=== PATIENT | female | born 1960 | race Caucasian/White ===

== ENCOUNTER 2016-09-09 08:28 | Emergency (ER) | payer BC ==
[2016-09-09 08:47] VITALS: BP 154/87
--- NOTE | 2016-09-09 09:01 | UC ---
Throat Pain/Nasal Elvin HPI - HPI Summary HPI Summary: 56 female presents with complaints of sinus pressure, nasal congestion, post nasal drip, headache, cough and chest congestion that began Saturday09/07/16. Patient states she has tried using the saline nasal spray and homeopathic remedies without relief. She states she thinks her sinus congestion has improved but now has moved into her chest. Admits to her cough being somewhat productive with yellow-mucus like sputum. She uses an inhaler when she runs and has been out of it. She admits to a fever on Saturday. Denies nausea, vomiting, diarrhea, sore throat and hemoptysis. Denies difficulty breathing, SOB and chest pain. Denies PMHx besides asthma. - History of Current Complaint Chief Complaint: UCGeneralIllness Stated Complaint: SINUS,COUGH Time Seen by Provider: 09/09/16 08:47 Hx Obtained From: Patient Hx Last Menstrual Period: 2009 - due to chemotherapy ?: No Onset/Duration: Sudden Onset Severity: Mild Cough: Productive Associated Signs & Symptoms: Positive: Sinus Discomfort, Nasal Discharge, Fever - Allergies/Home Medications Allergies/Adverse Reactions: Allergies Allergy/AdvReac Type Severity Reaction Status Date / Time No Known Allergies Allergy Verified 09/09/16 08:36 Home Medications: Home Medications Calcium 1,200 PO DAILY 09/09/16 [History] PMH/Surg Hx/FS Hx/Imm Hx Respiratory History Of: Reports: Asthma Cancer History Of: Reports: Breast Cancer - 2009 - Surgical History Surgical History: Yes Surgery Procedure, Year, and Place: TONSILECTOMY/LUMPECTOMY - Family History Known Family History: Positive: None - Social History Alcohol Use: Daily Alcohol Amount: wine daily Substance Use Type: None Smoking Status (MU): Former Smoker Type: Cigarettes Length of Time of Smoking/Using Tobacco: 20 years When Did the Patient Quit Smoking/Using Tobacco: 10 years ago - Immunization History Most Recent Influenza Vaccination: has not had Vaccination Up to Date: Yes Review of Systems Constitutional: Fever Skin: Negative Eyes: Negative ENT: Sore Throat, Ear Ache, Nasal Discharge Respiratory: Cough Cardiovascular: Negative Gastrointestinal: Negative Motor: Negative Neurovascular: Negative Musculoskeletal: Negative Neurological: Headache Psychological: Negative All Other Systems Reviewed And Are Negative: Yes Physical Exam Triage Information Reviewed: Yes Appearance: Well-Appearing, No Pain Distress, Well-Nourished Vital Signs: Initial Vital Signs Temp 99.7 F 09/09/16 08:40 Pulse 68 09/09/16 08:40 Resp 16 09/09/16 08:40 BP 154/87 09/09/16 08:40 Pulse Ox 100 09/09/16 08:40 Vital Signs Reviewed: Yes Eyes: Positive: Conjunctiva Clear ENT: Positive: Hearing grossly normal, Pharyngeal erythema - post nasal drip noted, Nasal congestion, Nasal drainage, TMs normal. Negative: Tonsillar swelling, Tonsillar exudate Dental: Positive: Percussion Tenderness @ - maxillary and frontal. Negative: Cervical Lymphadenopathy Neck: Positive: Supple, Nontender, No Lymphadenopathy Respiratory: Positive: Chest non-tender, Lungs clear, Normal breath sounds, No respiratory distress, No accessory muscle use Cardiovascular: Positive: RRR, No Murmur, Pulses Normal, Brisk Capillary Refill Abdominal Exam: Normal Musculoskeletal: Positive: Strength Intact, ROM Intact Neurological Exam: Normal Neurological: Positive: Alert Psychological Exam: Normal Skin Exam: Normal Throat Pain/Nasal Course/Dx - Course Course Of Treatment: continue flonase/saline and take z-pack. fluids. refilled inhaler because she stated she was out. - Differential Dx/Diagnosis Differential Diagnosis/HQI/PQRI: Influenza, Otitis Media, Pharyngitis, Sinusitis , Tonsillitis, URI Provider Diagnoses: sinusitis, URI Discharge - Discharge Plan Condition: Stable Disposition: HOME Prescriptions: Albuterol HFA INHALER* [Ventolin HFA Inhaler*] 1 - 2 puff INH Q4H PRN #1 mdi PRN Reason: Wheezing Azithromycin TAB* [Zithromax TAB (Z-DARRICK) 250 mg #6 tabs] 2 tab PO .TODAY, THEN 1 DAILY #1 darrick Patient Education Materials: Sinusitis (ED), Upper Respiratory Infection (ED) Referrals: Joyce Lacy MD [Medical Doctor] - Additional Instructions: Take prescribed antibiotic until entire dose is finished. Recommend taking with food to avoid upset stomach, and taking probiotic pills in between doses to replenish normal beatriz. Use flonase twice daily as needed for nasal congestion. Also recommend continued use of yuli pot's or saline nasal spray. Drink plenty of fluids and wash hands frequently. Humidified air or hot showers may help relieve you symptoms. You may continue use of Dayquil Ibuprofen/Aleve as needed. If symptoms do not improve or worsen please seek medical attention.
== END 2016-09-09 09:09 | disposition home or self-care (01) ==
LOC: UCCORT 08:28
DX: J32.9 Chronic sinusitis, unspecified (principal); J06.9 Acute upper respiratory infection, unspecified; J45.909 Unspecified asthma, uncomplicated; Z85.3 Personal history of malignant neoplasm of breast; Z87.891 Personal history of nicotine dependence
CPT/HCPCS: 99212; G0463

== ENCOUNTER 2016-09-20 10:21 | Emergency (ER) | payer BC ==
[2016-09-20 12:32] VITALS: BP 181/81
--- NOTE | 2016-09-20 13:04 | RAD ---
HISTORY: Facial trauma COMPARISONS: None VIEWS: 3, Canela views of the face, bilateral coned down lateral views of the nasal bones FINDINGS: BONE DENSITY: Normal. BONES: There is a transverse nondisplaced fracture of the nasal bones bilaterally JOINTS: There is no arthropathy. ALIGNMENT: There is no dislocation. SOFT TISSUES: Unremarkable. OTHER FINDINGS: None. IMPRESSION: TRANSVERSE FRACTURE OF THE NASAL BONES BILATERALLY
--- NOTE | 2016-09-20 13:50 | UC ---
Epistaxis Nasal HPI - HPI Summary HPI Summary: AT 9AM HORSE NODDED DOWNWARD AND HIT PATIENTS NOSE. FELT CRUNCH AND NOSE BLED. NO LOC. NO NECK PAIN. NO FACIAL TENDERNESS. SWELLING AND DEFORITY IN NOSE. HISTORY OF NASAL FRACTURE AT AGE 6Y/O. - History of Current Complaint Chief Complaint: UCUpperExtremity Stated Complaint: FACIAL NOSE INJURY WC Time Seen by Provider: 09/20/16 12:17 Hx Obtained From: Patient Hx Last Menstrual Period: 2009 - due to chemotherapy Onset/Duration: Sudden Onset, Lasting Hours, Still Present Timing: Hours Severity Initially: Moderate Severity Currently: Mild Aggravating Factor(s): Nasal Trauma Associated Signs And Symptoms: Positive: Negative - Allergies/Home Medications Allergies/Adverse Reactions: Allergies Allergy/AdvReac Type Severity Reaction Status Date / Time No Known Allergies Allergy Verified 09/20/16 12:26 PMH/Surg Hx/FS Hx/Imm Hx Previously Healthy: Yes Respiratory History Of: Reports: Asthma Cancer History Of: Reports: Breast Cancer - 2009 - Surgical History Surgical History: Yes Surgery Procedure, Year, and Place: TONSILECTOMY/LUMPECTOMY - Family History Known Family History: Positive: None Negative: Respiratory Disease, Blood Disorder - Social History Occupation: Employed Full-time Lives: With Family Alcohol Use: Daily Alcohol Amount: wine daily Substance Use Type: None Smoking Status (MU): Former Smoker Type: Cigarettes Length of Time of Smoking/Using Tobacco: 20 years When Did the Patient Quit Smoking/Using Tobacco: 10 years ago - Immunization History Most Recent Influenza Vaccination: has not had Vaccination Up to Date: Yes Review of Systems Constitutional: Negative Skin: Negative Eyes: Negative ENT: Epistaxis, Other - NASAL TRAUMA Respiratory: Negative Cardiovascular: Negative Gastrointestinal: Negative Genitourinary: Negative Motor: Negative Neurovascular: Negative Musculoskeletal: Negative Neurological: Negative Psychological: Negative All Other Systems Reviewed And Are Negative: Yes Physical Exam Triage Information Reviewed: Yes Appearance: Well-Appearing, No Pain Distress, Well-Nourished Vital Signs: Initial Vital Signs Temp 98.3 F 09/20/16 12:27 Pulse 55 09/20/16 12:27 Resp 18 09/20/16 12:27 BP 181/81 09/20/16 12:27 Pulse Ox 100 09/20/16 12:27 Vital Signs Reviewed: Yes Eye Exam: Normal ENT Exam: Normal ENT: Positive: Normal ENT inspection, Hearing grossly normal, Pharynx normal, TMs normal Dental Exam: Normal Neck exam: Normal Neck: Positive: Supple, Nontender, No Lymphadenopathy Respiratory Exam: Normal Respiratory: Positive: Chest non-tender, Lungs clear, Normal breath sounds, No respiratory distress Cardiovascular Exam: Normal Cardiovascular: Positive: RRR, No Murmur Abdominal Exam: Normal Musculoskeletal Exam: Normal Musculoskeletal: Positive: Strength Intact, ROM Intact Neurological Exam: Normal Psychological Exam: Normal Skin Exam: Normal Epistaxis Nasal Course/Dx - Differential Dx/Diagnosis Differential Diagnosis/HQI/PQRI: Epistaxis, Trauma Provider Diagnoses: CLOSED TRANSVERSE NASAL BONE FRACTURE Discharge - Discharge Plan Condition: Stable Disposition: HOME Patient Education Materials: Nasal Fracture (ED) Referrals: Santiago Fontana MD [Medical Doctor] - Dougie Traylor MD [Doctor of Dental Medicine] - Raina Mancia MD [Primary Care Provider] -
== END 2016-09-20 13:45 | disposition home or self-care (01) ==
LOC: UCCORT 10:21
DX: S02.2XXA Fracture of nasal bones, initial encounter for closed fracture (principal); W55.12XA Struck by horse, initial encounter; Y93.9 Activity, unspecified; Y92.9 Unspecified place or not applicable; J45.909 Unspecified asthma, uncomplicated; Z85.3 Personal history of malignant neoplasm of breast; Z87.891 Personal history of nicotine dependence
CPT/HCPCS: 70160; 99212; G0463

== ENCOUNTER 2017-10-28 18:31 | Emergency (ER) | payer SELFPAY ==
[2017-10-28 19:08] VITALS: BP 167/84
--- NOTE | 2017-10-28 19:49 | UC ---
Lower Extremity/Ankle HPI - HPI Summary HPI Summary: Pt at work today and struck top of right foot on a furnace while walking. pt initially mild discomfort. Pt states with ambulating attempted to "crack" ankle and caused increasd oain. Pt with pain base 5th MT, lateral malleolus. No edema. no ice limping walking No knee pain. No other injuries pt's medications reviewd this visit - History of Current Complaint Chief Complaint: UCLowerExtremity Stated Complaint: LEFT FOOT INJURY Time Seen by Provider: 10/28/17 19:34 Hx Obtained From: Patient Hx Last Menstrual Period: 2009 - due to chemotherapy ?: No Onset/Duration: Sudden Onset Severity Initially: Moderate Severity Currently: Moderate Pain Intensity: 8 Pain Scale Used: 0-10 Numeric Aggravating Factor(s): Standing, Ambulation Alleviating Factor(s): Elevation Able to Bear Weight: Yes - with limp - Allergies/Home Medications Allergies/Adverse Reactions: Allergies Allergy/AdvReac Type Severity Reaction Status Date / Time No Known Allergies Allergy Verified 09/20/16 12:26 Home Medications: Home Medications Naproxen Sodium [Aleve] 220 mg PO Q8H 10/28/17 [History Confirmed 10/28/17] PMH/Surg Hx/FS Hx/Imm Hx Previously Healthy: Yes - Surgical History Surgical History: Yes Surgery Procedure, Year, and Place: TONSILLECTOMY. LUMPECTOMY - Family History Known Family History: Positive: None Negative: Respiratory Disease, Blood Disorder - Social History Occupation: Employed Full-time Lives: With Family Alcohol Use: Daily Alcohol Amount: wine daily Substance Use Type: None Smoking Status (MU): Former Smoker Type: Cigarettes Length of Time of Smoking/Using Tobacco: 20 years When Did the Patient Quit Smoking/Using Tobacco: 10 years ago Household Exposure Type: Cigarettes - Immunization History Most Recent Influenza Vaccination: has not had Vaccination Up to Date: Yes Review of Systems Constitutional: Negative Neurovascular: Negative Musculoskeletal: Other: - right ankle foot pain Neurological: Negative All Other Systems Reviewed And Are Negative: Yes Physical Exam Triage Information Reviewed: Yes Appearance: Well-Appearing, No Pain Distress, Well-Nourished Vital Signs: Initial Vital Signs Temp 97.0 F 10/28/17 19:02 Pulse 60 10/28/17 19:02 Resp 16 10/28/17 19:02 BP 167/84 10/28/17 19:02 Pulse Ox 100 10/28/17 19:02 Vital Signs Reviewed: Yes ENT: Positive: Hearing grossly normal Neck: Positive: Supple Respiratory: Positive: No respiratory distress, No accessory muscle use Cardiovascular: Positive: Other: - 2+ DP,PT CBT <2 sec Musculoskeletal: Positive: Other: - + SLE + flex/ext knee, ankle knee without pain + flex/ext ankle with tenderness lateral malleolus pain base 5th MT No crepitus No pain tarsals no tender phalanges Neurological Exam: Normal Neurological: Positive: Alert, Other: - + gross sensation throughout Psychological Exam: Normal Psychological: Positive: Normal Response To Family Skin: Positive: Other - no edema, no ecchymosis Diagnostics - Radiology No standard instances Xray Interpretation: No Acute Changes Radiology Interpretation Completed By: Radiologist Lower Extremity Course/Dx - Course Course Of Treatment: pt with pain right lateral ankle and base 5th and striking furnace at work. Pt with focal discomfort lateral malleolus and base 5th MT. imaging neg. layla. airsplint. crutches. ice. motrin/apap. sports med f/u. pt with elevated BP - advised f/u - Differential Dx/Diagnosis Provider Diagnoses: right ankle pain Discharge - Sign-Out/Discharge Documenting (check all that apply): Discharge/Admit/Transfer - Discharge Plan Condition: Stable Disposition: HOME Patient Education Materials: Foot Sprain (ED) Referrals: [facility] [Provider Group] Raina Mancia MD [Primary Care Provider] - Additional Instructions: -wear layla wrap and air splint for comfort and support -apply ice (20 min at a time) every 2-3 hours for the next 2 days -use crutches until you can walk normally without a limp -Elevate your leg - this will help with swelling and pain - Alternate ibuprofen (advil, Motrin) 600mg and tylenol every 3 hours for pain. Take with food. Do NOT take for more than 4-5 days -Contact the sports medicine provider to schedule a follow-up appointment this week - Billing Disposition and Condition Condition: STABLE Disposition: HOME
--- NOTE | 2017-10-28 19:59 | RAD ---
Indication: Pain across the LEFT foot tarsal bones extending into the metatarsals following stopping injury. Comparison: No relevant prior exams available on the [facility] [place] [facility] [place]. Technique: AP, lateral, and oblique views LEFT foot. Report: Bone density appears decreased throughout. No fracture visualized. Normal articular alignment. Os tibiale externum, os peroneum, and os trigonum accessory ossicles noted. Moderate Achilles tendon insertion bone spur. Diffuse soft tissue edema. IMPRESSION: Negative for fracture.
== END 2017-10-28 20:20 | disposition home or self-care (01) ==
LOC: UCCORT 18:31
DX: M79.671 Pain in right foot (principal); Z87.891 Personal history of nicotine dependence; W22.09XA Striking against other stationary object, initial encounter; Y93.01 Activity, walking, marching and hiking; Y92.9 Unspecified place or not applicable
CPT/HCPCS: 99213; G0463